=== PATIENT | male | born 1945 | race Caucasian/White ===

== ENCOUNTER → 2023-09-06 11:04 | Outpatient (REF) | payer MEDICARE, BC, SELFPAY | LOC: RAD 11:04 | PROVIDERS: ATTENDING PHYSICIAN Family Medicine | DX: M54.50 Low back pain, unspecified (principal) | CPT/HCPCS: 72110 ==

== ENCOUNTER → 2024-01-01 08:05 | Outpatient (REF) | payer MEDICARE, BC, SELFPAY | LOC: RAD 08:05 | PROVIDERS: ATTENDING PHYSICIAN Surgery Vascular Surgery; FAMILY PHYSICIAN Family Medicine | DX: I70.203 Unspecified atherosclerosis of native arteries of extremities, bilateral legs (principal) | CPT/HCPCS: 93922; 93925 ==

== ENCOUNTER → 2024-01-25 13:15 | Outpatient (REF) | payer MEDICARE, BC, SELFPAY ==
[2024-01-25 14:14] LABS: Blood Urea Nitrogen 24 mg/dl (9-20)
== END ==
LOC: REG 13:15
PROVIDERS: ATTENDING PHYSICIAN Physical Medicine & Rehabilitation; FAMILY PHYSICIAN Family Medicine
DX: Z01.812 Encounter for preprocedural laboratory examination (principal)
CPT/HCPCS: 36415; 82565; 84520

== ENCOUNTER → 2024-05-22 12:56 | Outpatient (REF) | payer MEDICARE, BC, SELFPAY | LOC: RAD 12:56 | PROVIDERS: ATTENDING PHYSICIAN Family Medicine | DX: M21.70 Unequal limb length (acquired), unspecified site (principal) | CPT/HCPCS: 77073 ==

== ENCOUNTER → 2025-01-02 12:30 | Outpatient (REF) | payer MEDICARE, BC, SELFPAY | LOC: EMG 12:30 | PROVIDERS: ATTENDING PHYSICIAN Orthopaedic Surgery; FAMILY PHYSICIAN Family Medicine | DX: R20.0 Anesthesia of skin (principal); G56.03 Carpal tunnel syndrome, bilateral upper limbs | CPT/HCPCS: 95886; 95911 ==